=== PATIENT | male | born 1975 | race Two or more races ===

== ENCOUNTER 2017-12-10 19:36 | Emergency (ER) | payer OTHER ==
[~2017-12-10] VITALS: Ht 180.3 cm; Wt 77.1 kg
--- NOTE | 2017-12-10 19:36 | NUR ---
BBRA 60 C/C OF TONIC/CLONIC SEIZURE, UNKNOWN DURATION. NO HX OF SEIZURES. BS WAS 89 IN FIELD. VSS NAD. WILL CONTINUE TO MONITOR FOR ANY CHNAGES. STATED "I NEED TO BE SEEN BY SOMEONE MAN. THE STREETS ARE HARD".
--- NOTE | 2017-12-10 19:50 | NUR ---
BLOOD PICKED UP BY CNC OPERATOR PROGRAMMER
[2017-12-10] MEDS ORDERED: LORAZEPAM INJ 2 MG/ML VIAL IVP ONE (20:00)
[2017-12-10] MEDS ORDERED: IV NS 0.9% 1,000 ML BAG IV ONE (20:00)
[2017-12-10 20:02] LABS: BASOPHILS % (AUTO) 1.5 % (0.0-2.0); EOSINOPHILS % (AUTO) 2.8 % (0.0-6.0); HEMATOCRIT 38 % (39-51); LYMPHOCYTES # (AUTO) 0.7 /CMM (0.8-4.8); LYMPHOCYTES % (AUTO) 26.5 % (20.0-44.0); MEAN CORPUSCULAR HGB CONC 35 g/dl (31.0-36.0); MEAN CORPUSCULAR VOLUME 98 fL (80-96); MONOCYTES # (AUTO) 0.3 /CMM (0.1-1.30); MONOCYTES % (AUTO) 10.7 % (2.0-12.0); NEUTROPHILS # (AUTO) 1.5 /CMM (1.8-8.9); NEUTROPHILS % (AUTO) 58.5 % (43.0-81.0); PLATELET COUNT (AUTO) 133 /CMM (150-450); RDW COEFFICIENT OF VARIATION 14.5 (11.5-15.0); RED BLOOD CELL COUNT(AUTO) 3.85 MIL/uL (4.5-6.0); WHITE BLOOD COUNT (AUTO) 2.6 K/uL (4.3-11.0)
[2017-12-10] MEDS ORDERED: LORAZEPAM INJ 2 MG/ML VIAL ONE (20:04)
--- NOTE | 2017-12-10 20:09 | NUR ---
PT OFF TO CT
[2017-12-10 20:18] LABS: INR 0.97 (0.87-1.13)
[2017-12-10 20:32] LABS: ALANINE AMINOTRANSFERASE 66 U/L (12-78); ALCOHOL, BLOOD < 3 mg/dL (0-0); ALKALINE PHOSPHATASE 55 U/L (46-116); ASPARTATE AMINOTRANSFERASE 90 U/L (15-37); BILIRUBIN,DIRECT 0.2 mg/dL (0.0-0.2); BILIRUBIN,TOTAL 0.9 mg/dL (0.2-1.0); CALCIUM, SERUM 9.5 mg/dL (8.5-10.1); CARBON DIOXIDE 22 mmol/L (21-32); CHLORIDE 99 mmol/L (98-107); CREATININE 1.2 mg/dL (0.6-1.3); GLUCOSE 116 mg/dL (74-106); SALICYLATE 3.4 mg/dL (2.8-20.0); SODIUM SERUM 137 mmol/L (136-145); TOTAL PROTEIN, SERUM 7.2 g/dL (6.4-8.2); UREA NITROGEN, BLOOD 11 mg/dL (7-18)
[2017-12-10 20:55] LABS: ACETAMINOPHEN 0 ug/ml (10-30)
--- NOTE | 2017-12-11 00:43 | NUR ---
PT SLEEPING IN BED. AWAITING TRANSFER
--- NOTE | 2017-12-11 01:28 | NUR ---
DESTINEE CALLED FROM [facility]TA[facility], PT IS GOING TO [facility] AT [address] [place] [id number] ADMITTING TYSON LANDA IS DR. ZIMMER. CALL [phone] FOR NURSE TO NURSE REPORT.
[2017-12-11 01:38] VITALS: BP 135/88
--- NOTE | 2017-12-11 01:40 | NUR ---
GAVE REPORT TO MECHELLE QUEZADA. SHE STATED THE PATIENT ROOM IS 48B
--- NOTE | 2017-12-11 02:02 | NUR ---
GIVEN REPORT TO EMS. PT STABLE
== END 2017-12-11 02:04 ==
LOC: ER 19:37
DX: R45.851 Suicidal ideations (principal); R42 Dizziness and giddiness; R55 Syncope and collapse; F17.200 Nicotine dependence, unspecified, uncomplicated; Z59.0 Homelessness
CPT/HCPCS: 36415; 70450; 71045; 80048; 80076; 80305; 80329; 85025; 85730; 96361; 96374; 99285; A4606; G0480 ×2; J2060; J7030; Z7610

== ENCOUNTER 2018-11-23 07:20 | Emergency (ER) | payer MEDICAID, OTHER ==
[~2018-11-23] VITALS: Ht 182.9 cm; Wt 79.4 kg
[2018-11-23] MEDS ORDERED: LORAZEPAM INJ 2 MG/ML VIAL ONE (07:47)
[2018-11-23] MEDS ORDERED: ONDANSETRON 4 MG TAB.RAPDIS ONE (07:59)
[2018-11-23] MEDS ORDERED: LORAZEPAM INJ 2 MG/ML VIAL IM ONE (08:00)
[2018-11-23] MEDS ORDERED: ONDANSETRON HCL 4 MG/5 ML SOLUTION PO ONE (08:00)
--- NOTE | 2018-11-23 08:01 | NUR ---
pt c/o anxiety and nausea ativan and zofran given per md order vss AWAITING EVALUATION BY ER PROVIDER.
--- NOTE | 2018-11-23 08:45 | NUR ---
PT STATED GULSHAN WOODY. VERBALIZED UNDERSTANDING OF AFTERCARE INSTRUCTIONS.Patient discharged to home in stable condition. Written and verbal after care instructions given. Patient verbalizes understanding of instruction.
[2018-11-23 08:47] VITALS: BP 133/72
== END 2018-11-23 08:48 | disposition home or self-care (01) ==
LOC: ER 07:26
DX: F10.129 Alcohol abuse with intoxication, unspecified (principal); F43.10 Post-traumatic stress disorder, unspecified; F41.9 Anxiety disorder, unspecified; F20.9 Schizophrenia, unspecified; F31.9 Bipolar disorder, unspecified; F17.200 Nicotine dependence, unspecified, uncomplicated; Y90.9 Presence of alcohol in blood, level not specified; Z59.0 Homelessness
CPT/HCPCS: 96372; 99283; J2060; Q0162

== ENCOUNTER 2018-12-16 18:33 | Emergency (ER) | payer MEDICAID ==
[~2018-12-16] VITALS: Ht 167.6 cm; Wt 79.4 kg
--- NOTE | 2018-12-16 19:45 | NUR ---
PT PRESENTED TO THE ER WITH A C/O BACK PAIN. PT AMBULATED TO ER18 CH1 WITH A STEADY GAIT. PT APPEARS ANXIOUS.
[2018-12-16] MEDS ORDERED: LORAZEPAM 1 MG TABLET PO ONE (20:00)
[2018-12-16] MEDS ORDERED: LORAZEPAM 1 MG TABLET ONE (20:00)
--- NOTE | 2018-12-16 20:03 | NUR ---
PT REC'D MEDICATION ORDERED. PT WOULD LIKE TO SPEAK TO THE DR RE: MUSCLE RELAXERS.
--- NOTE | 2018-12-16 20:25 | NUR ---
PT IS GOING TO RADIOLOGY VIA .
--- NOTE | 2018-12-16 20:40 | NUR ---
PT RETURNED FROM RADIOLOGY
--- NOTE | 2018-12-16 21:07 | NUR ---
PT REC'D A SANDWICH AND JUICE
--- NOTE | 2018-12-16 21:10 | NUR ---
CALLED PETRA RE: MIKE HINTON.
--- NOTE | 2018-12-16 21:45 | NUR ---
Shabbir burnette in EDM - 12/16/18 at 2223 by ARCELIA PT PRESENTED TO THE ER WITH A C/O BACK PAIN. PT AMBULATED TO [place] [id number] WITH A STEADY GAIT. PT APPEARS ANXIOUS.
[2018-12-16 22:05] VITALS: BP 122/75
== END 2018-12-16 22:24 | disposition home or self-care (01) ==
LOC: ER 18:33
DX: M54.5 Low back pain (principal); M25.561 Pain in right knee; F31.9 Bipolar disorder, unspecified; F41.9 Anxiety disorder, unspecified; F43.10 Post-traumatic stress disorder, unspecified; F20.9 Schizophrenia, unspecified; F10.10 Alcohol abuse, uncomplicated; F17.200 Nicotine dependence, unspecified, uncomplicated; Y90.9 Presence of alcohol in blood, level not specified; Z59.0 Homelessness; Z76.0 Encounter for issue of repeat prescription
CPT/HCPCS: 72100-TC; 73560-TC

== ENCOUNTER 2018-12-24 21:13 | Emergency (ER) | payer MEDICAID ==
[~2018-12-24] VITALS: Ht 180.3 cm; Wt 74.8 kg
[2018-12-24 22:08] LABS: BASOPHILS # (AUTO) 0.1 /CMM (0.0-0.2); BASOPHILS % (AUTO) 1.2 % (0.0-2.0); EOSINOPHILS % (AUTO) 5.9 % (0.0-6.0); HEMATOCRIT 40 % (39-51); HEMOGLOBIN 13.7 g/dL (13.5-17.5); LYMPHOCYTES # (AUTO) 1.3 /CMM (0.8-4.8); LYMPHOCYTES % (AUTO) 27.1 % (20.0-44.0); MEAN CORPUSCULAR HGB CONC 35 g/dl (31.0-36.0); MEAN CORPUSCULAR VOLUME 101 fL (80-96); MONOCYTES # (AUTO) 0.5 /CMM (0.1-1.30); MONOCYTES % (AUTO) 10.6 % (2.0-12.0); NEUTROPHILS # (AUTO) 2.7 /CMM (1.8-8.9); NEUTROPHILS % (AUTO) 55.2 % (43.0-81.0); PLATELET COUNT (AUTO) 402 /CMM (150-450); RED BLOOD CELL COUNT(AUTO) 3.93 MIL/uL (4.5-6.0); WHITE BLOOD COUNT (AUTO) 4.8 K/uL (4.3-11.0)
--- NOTE | 2018-12-24 22:17 | NUR ---
BIB SELF FOR SUICIDE THOUGHTS AND HALLUCINATION. BELONGING LIST AND METAL SCAN DONE BY SECURITY. SEEN BY
[2018-12-24 22:22] LABS: ALANINE AMINOTRANSFERASE 33 U/L (12-78); ALBUMIN 3.6 g/dL (3.4-5.0); ALCOHOL, BLOOD < 3 mg/dL (0-0); ALKALINE PHOSPHATASE 54 U/L (46-116); ASPARTATE AMINOTRANSFERASE 41 U/L (15-37); BILIRUBIN,DIRECT 0.1 mg/dL (0.0-0.2); BILIRUBIN,TOTAL 0.8 mg/dL (0.2-1.0); CALCIUM, SERUM 8.4 mg/dL (8.5-10.1); CARBON DIOXIDE 25 mmol/L (21-32); CHLORIDE 103 mmol/L (98-107); CREATININE 0.9 mg/dL (0.6-1.3); GLUCOSE 83 mg/dL (74-106); POTASSIUM 3.7 mmol/L (3.5-5.1); SODIUM SERUM 139 mmol/L (136-145); TOTAL PROTEIN, SERUM 6.9 g/dL (6.4-8.2); UREA NITROGEN, BLOOD 14 mg/dL (7-18)
[2018-12-24 22:23] LABS: ACETAMINOPHEN 0 ug/ml (10-30); SALICYLATE 1.4 mg/dL (2.8-20.0)
--- NOTE | 2018-12-24 22:27 | NUR ---
SITTER AT BEDSIDE
[2018-12-25 00:19] LABS: APPEARANCE,URINE Slightly Cloudy (CLEAR); BILIRUBIN,URINE MODERATE (NEGATIVE); BLOOD, URINE Trace-intact Ery/uL (NEGATIVE); COLOR,URINE Yellow (YELLOW); KETONES,URINE 15 (NEGATIVE); LEUKOCYTE ESTERASE ,URINE Trace (NEGATIVE); NITRITE, URINE Negative (NEGATIVE); PH,URINE 6.5 (5.0-8.0); PROTEIN,URINE 100 mg/dl (NEGATIVE); UGLUCOSE 100 MG/DL mg/dL (NEGATIVE)
[2018-12-25 01:04] LABS: BACTERIA,URINE Moderate /HPF (None Seen); MUCUS,URINE Moderate /LPF (None Seen); RBC,URINE 21-50 /HPF (0-2); SQUAMOUS EPITHELIAL CELL,UR Rare /HPF (None Seen); WBC,URINE 21-50 /HPF (0-3)
--- NOTE | 2018-12-25 01:05 | NUR ---
FACESHEET AND PACKET FAXED TO [facility] INTAKE, FOR VOLUNTARY ADMISSION.
[2018-12-25] MEDS ORDERED: CEPHALEXIN MONOHYDRATE 500 MG CAPSULE PO ONE ×2 (01:48→02:00)
--- NOTE | 2018-12-25 07:26 | NUR ---
[facility] RADIOLOGY TECHNICIAN SERGIO FONSECA AT BEDSIDE
--- NOTE | 2018-12-25 07:30 | NUR ---
PT SIGNED HOMELESS WAIVER FORM
--- NOTE | 2018-12-25 09:09 | NUR ---
BREAKFAST TRAY PROVIDED, PT TOLERATING PO WELL.
--- NOTE | 2018-12-25 10:15 | NUR ---
SPOKE TO DIONISIO INTAKE NURSE OF BRENDA CAREY FOR REPORT.
--- NOTE | 2018-12-25 10:21 | NUR ---
Patient discharged to [facility] in stable condition. Written and verbal after care instructions given. Patient verbalizes understanding of instruction. PT WILL BE BROUGHT TO BRENDA CAREY. ALL BELONGINGD GIVEN TO PATIENT.
[2018-12-25 10:24] VITALS: BP 117/78
== END 2018-12-25 10:27 ==
LOC: ER 21:15
DX: R45.851 Suicidal ideations (principal); N39.0 Urinary tract infection, site not specified; F41.9 Anxiety disorder, unspecified; F43.10 Post-traumatic stress disorder, unspecified; F20.9 Schizophrenia, unspecified; F31.9 Bipolar disorder, unspecified; F10.10 Alcohol abuse, uncomplicated; F17.200 Nicotine dependence, unspecified, uncomplicated; Y90.0 Blood alcohol level of less than 20 mg/100 ml; Z59.0 Homelessness
CPT/HCPCS: 36415; 80048; 80076; 80307; 80329; 81001; 85025; 87086; 99285; G0480; 80305; 81000-TC

== ENCOUNTER 2019-06-11 15:09 | Emergency (ER) | payer MEDICAID ==
[~2019-06-11] VITALS: Ht 180.3 cm; Wt 70.3 kg
[2019-06-11 16:08] VITALS: BP 122/89
[2019-06-11] MEDS ORDERED: IBUPROFEN 600 MG TABLET PO ONE ×2 (16:30)
[2019-06-11] MEDS ORDERED: LORAZEPAM 1 MG TABLET PO ONE (16:30)
[2019-06-11] MEDS ORDERED: LORAZEPAM 1 MG TABLET ONE (16:30)
== END 2019-06-11 16:39 | disposition home or self-care (01) ==
LOC: ER 15:09
DX: M54.5 Low back pain (principal); F41.0 Panic disorder [episodic paroxysmal anxiety]; F32.9 Major depressive disorder, single episode, unspecified; F43.10 Post-traumatic stress disorder, unspecified; F12.90 Cannabis use, unspecified, uncomplicated; Z59.0 Homelessness

== ENCOUNTER 2019-06-17 19:47 | Emergency (ER) | payer OTHER, MEDICAID ==
[~2019-06-17] VITALS: Ht 180.3 cm; Wt 70.3 kg
--- NOTE | 2019-06-17 19:53 | NUR ---
PT BIBS.AAOX4. AMBULATORY C/O ANXIETY ATTACK, FATIGUE, DIZZY. DENIES SI OR HI. PLACED ON MONITOR AND PULSE OX. NO ACUTE DISTRESS NOTED. NO NEURO DEFICIT. AWAITING MD FOR EVAL.
--- NOTE | 2019-06-17 20:02 | NUR ---
URINE COLLECTED AND SENT TO LAB
--- NOTE | 2019-06-17 20:10 | NUR ---
PT STATED HE FEELS DEPRESSED SOMETIMES. BELONINGS PLACED IN LOCKER. PT PLACED IN GOWN AND ON MONITOR AND PULSE OX.
[2019-06-17 20:25] LABS: BASOPHILS # (AUTO) 0.1 /CMM (0.0-0.2); BASOPHILS % (AUTO) 1.2 % (0.0-2.0); EOSINOPHILS % (AUTO) 12.1 % (0.0-6.0); HEMATOCRIT 43 % (39-51); HEMOGLOBIN 14.6 g/dL (13.5-17.5); LYMPHOCYTES # (AUTO) 1.2 /CMM (0.8-4.8); LYMPHOCYTES % (AUTO) 25.7 % (20.0-44.0); MEAN CORPUSCULAR HGB CONC 34 g/dl (31.0-36.0); MEAN CORPUSCULAR VOLUME 99 fL (80-96); MONOCYTES # (AUTO) 0.5 /CMM (0.1-1.30); MONOCYTES % (AUTO) 10.2 % (2.0-12.0); NEUTROPHILS # (AUTO) 2.4 /CMM (1.8-8.9); NEUTROPHILS % (AUTO) 50.8 % (43.0-81.0); PLATELET COUNT (AUTO) 366 /CMM (150-450); RED BLOOD CELL COUNT(AUTO) 4.38 MIL/uL (4.5-6.0); WHITE BLOOD COUNT (AUTO) 4.8 K/uL (4.3-11.0)
[2019-06-17 20:27] LABS: APPEARANCE,URINE Clear (CLEAR); BILIRUBIN,URINE Negative (NEGATIVE); BLOOD, URINE Negative Ery/uL (NEGATIVE); COLOR,URINE Yellow (YELLOW); KETONES,URINE Negative (NEGATIVE); LEUKOCYTE ESTERASE ,URINE Negative (NEGATIVE); NITRITE, URINE Negative (NEGATIVE); PH,URINE 5.5 (5.0-8.0); PROTEIN,URINE Negative (NEGATIVE); UGLUCOSE Negative (NEGATIVE); UROBILINOGEN,URINE 0.2 EU/dL (0.2)
[2019-06-17 20:52] LABS: ALANINE AMINOTRANSFERASE 14 U/L (12-78); ALBUMIN 3.6 g/dL (3.4-5.0); ALCOHOL, BLOOD < 3 mg/dL (0-0); ALKALINE PHOSPHATASE 52 U/L (46-116); ASPARTATE AMINOTRANSFERASE 25 U/L (15-37); BILIRUBIN,DIRECT 0.1 mg/dL (0.0-0.2); BILIRUBIN,TOTAL 0.3 mg/dL (0.2-1.0); CALCIUM, SERUM 8.9 mg/dL (8.5-10.1); CARBON DIOXIDE 24 mmol/L (21-32); CHLORIDE 103 mmol/L (98-107); CREATININE 0.9 mg/dL (0.6-1.3); GLUCOSE 89 mg/dL (74-106); POTASSIUM 4.1 mmol/L (3.5-5.1); SALICYLATE 3.2 mg/dL (2.8-20.0); SODIUM SERUM 140 mmol/L (136-145); TOTAL PROTEIN, SERUM 7.3 g/dL (6.4-8.2); UREA NITROGEN, BLOOD 17 mg/dL (7-18)
--- NOTE | 2019-06-17 21:11 | NUR ---
Pt watching tv. VSS.
--- NOTE | 2019-06-17 21:36 | NUR ---
Patient discharged to home in stable condition. Written and verbal after care instructions given. Patient verbalizes understanding of instruction. VSS. pt ambulatory with a steady gait.
[2019-06-17 21:40] VITALS: BP 128/82
== END 2019-06-17 21:42 | disposition home or self-care (01) ==
LOC: ER 19:51
DX: F41.0 Panic disorder [episodic paroxysmal anxiety] (principal); R42 Dizziness and giddiness; J45.909 Unspecified asthma, uncomplicated; F32.9 Major depressive disorder, single episode, unspecified; F20.9 Schizophrenia, unspecified; F17.200 Nicotine dependence, unspecified, uncomplicated; Z59.0 Homelessness
CPT/HCPCS: 36415; 80048; 80076; 80305; 80307; 80329; 81001; 84484; 85025; 93005; 99284; G0480; 81000-TC

== ENCOUNTER 2019-07-07 20:50 | Emergency (ER) | payer MEDICAID, OTHER ==
[~2019-07-07] VITALS: Ht 180.3 cm; Wt 72.6 kg
--- NOTE | 2019-07-07 21:01 | NUR ---
BIBS FOR C/O DIZZINESS, ANXIETY, FATIGUE X 1 MONTH, pt awake, alert, -sob, nad noted, vss, pending md zurita
[2019-07-07] MEDS ORDERED: DEXAMETHASONE SOD PHOSPHATE 10 MG/ML VIAL IV ONE (21:30)
[2019-07-07] MEDS ORDERED: IV NS 0.9% 1,000 ML BAG IV ONE (21:30)
[2019-07-07] MEDS ORDERED: LORAZEPAM INJ 2 MG/ML VIAL IV ONE (21:30)
[2019-07-07] MEDS ORDERED: KETOROLAC TROMETHAMINE INJ 30 MG/ML VIAL IV ONE (21:30)
[2019-07-07] MEDS ORDERED: DEXAMETHASONE SOD PHOSPHATE 10 MG/ML VIAL ONE (21:32)
[2019-07-07] MEDS ORDERED: LORAZEPAM INJ 2 MG/ML VIAL ONE (21:32)
[2019-07-07] MEDS ORDERED: KETOROLAC TROMETHAMINE INJ 30 MG/ML VIAL ONE (21:32)
--- NOTE | 2019-07-07 22:50 | NUR ---
Patient discharged to home in stable condition. Written and verbal after care instructions given. Patient verbalizes understanding of instruction and RX. IV removed. Catheter intact and site benign. Pressure and 4x4 applied to site. No bleeding noted. PT ambulatory with a steady gait.
[2019-07-07 22:52] VITALS: BP 126/78
== END 2019-07-07 22:53 | disposition home or self-care (01) ==
LOC: ER 20:51
DX: R51 Headache (principal); R42 Dizziness and giddiness; F41.9 Anxiety disorder, unspecified; F31.9 Bipolar disorder, unspecified; F20.9 Schizophrenia, unspecified; F43.10 Post-traumatic stress disorder, unspecified; J45.909 Unspecified asthma, uncomplicated; F10.10 Alcohol abuse, uncomplicated; F17.200 Nicotine dependence, unspecified, uncomplicated; Y90.9 Presence of alcohol in blood, level not specified; Z59.0 Homelessness; Z98.890 Other specified postprocedural states
CPT/HCPCS: 96361; 96374; 96375; 99283; J1100; J1885; J2060; J7030

== ENCOUNTER 2019-09-24 11:38 | Emergency (ER) | payer MEDICAID ==
[~2019-09-24] VITALS: Ht 180.3 cm; Wt 82.6 kg
--- NOTE | 2019-09-24 12:30 | NUR ---
DR BARBOSA AT BEDSIDE FOR EVAL.
--- NOTE | 2019-09-24 12:46 | NUR ---
OUTER DIAMETER GRINDER TOOL AT BEDSIDE FOR BLOOD DRAW.
[2019-09-24 12:49] LABS: BASOPHILS # (AUTO) 0.1 /CMM (0.0-0.2); BASOPHILS % (AUTO) 2.4 % (0.0-2.0); HEMATOCRIT 48 % (39-51); HEMOGLOBIN 15.9 g/dL (13.5-17.5); LYMPHOCYTES # (AUTO) 1.3 /CMM (0.8-4.8); LYMPHOCYTES % (AUTO) 26.8 % (20.0-44.0); MEAN CORPUSCULAR HGB CONC 33 g/dl (31.0-36.0); MEAN CORPUSCULAR VOLUME 98 fL (80-96); MONOCYTES # (AUTO) 0.4 /CMM (0.1-1.30); MONOCYTES % (AUTO) 8.8 % (2.0-12.0); NEUTROPHILS # (AUTO) 2.5 /CMM (1.8-8.9); PLATELET COUNT (AUTO) 299 /CMM (150-450); RED BLOOD CELL COUNT(AUTO) 4.93 MIL/uL (4.5-6.0)
[2019-09-24 12:56] LABS: CALCIUM, SERUM 8.9 mg/dL (8.5-10.1); CREATININE 0.9 mg/dL (0.6-1.3); POTASSIUM 3.9 mmol/L (3.5-5.1)
[2019-09-24 13:02] LABS: ALBUMIN 4.5 g/dL (3.4-5.0); BILIRUBIN,DIRECT 0.2 mg/dL (0.0-0.2); BILIRUBIN,TOTAL 0.8 mg/dL (0.2-1.0); SALICYLATE 1.9 mg/dL (2.8-20.0); TOTAL PROTEIN, SERUM 8.2 g/dL (6.4-8.2)
[2019-09-24 13:09] LABS: APPEARANCE,URINE Clear (CLEAR); BILIRUBIN,URINE Negative (NEGATIVE); BLOOD, URINE Negative Ery/uL (NEGATIVE); COLOR,URINE Yellow (YELLOW); KETONES,URINE Negative (NEGATIVE); LEUKOCYTE ESTERASE ,URINE Negative (NEGATIVE); NITRITE, URINE Negative (NEGATIVE); PROTEIN,URINE Negative (NEGATIVE); UGLUCOSE Negative (NEGATIVE); UROBILINOGEN,URINE 0.2 EU/dL (0.2)
--- NOTE | 2019-09-24 13:45 | NUR ---
PT PROVIDED W/MEAL TRAY.
--- NOTE | 2019-09-24 17:21 | NUR ---
PT REQUESTING ATIVAN. AWARE
--- NOTE | 2019-09-24 17:38 | NUR ---
PT STATES HE WANTS TO LEAVE. DENIES SI/HI. NOTIFIED ERMD.
--- NOTE | 2019-09-24 17:46 | NUR ---
PT WALKED OUT. ERMD AWARE.
--- NOTE | 2019-09-24 17:50 | NUR ---
PT IS AMBULATORY W/ STEADY GAIT, CLINICALLY SOBER. RE EVALUATED BY DR DENTON. WANT TO LEAVE ED. DENIES SI/HI. STABLE VITALS. REFUSED TO SIGN HOMELESS WAIVER AND ACI.
[2019-09-24 19:01] VITALS: BP 122/64
== END 2019-09-24 17:50 | disposition home or self-care (01) ==
LOC: ER 11:38
DX: F31.9 Bipolar disorder, unspecified (principal); F43.10 Post-traumatic stress disorder, unspecified; R45.851 Suicidal ideations; R45.850 Homicidal ideations; J45.909 Unspecified asthma, uncomplicated; Z59.0 Homelessness; F20.9 Schizophrenia, unspecified; Z98.890 Other specified postprocedural states
CPT/HCPCS: 36415; 80048; 80076; 80305; 80307; 80329; 81001; 85025; 99283; G0480; 81000-TC